=== PATIENT | female | born 1955 | race Caucasian/White ===

== ENCOUNTER → 2023-10-26 12:27 | Outpatient (REF) | payer OTHER, SELFPAY | LOC: HWRAD 12:27 | PROVIDERS: ATTENDING PHYSICIAN Student in an Organized Health Care Education/Training Program | DX: M25.649 Stiffness of unspecified hand, not elsewhere classified (principal); M79.641 Pain in right hand; M79.642 Pain in left hand | CPT/HCPCS: 73130 ==

== ENCOUNTER → 2023-10-28 08:13 | Outpatient (REF) | payer OTHER, SELFPAY | LOC: HWRAD 08:13 | PROVIDERS: ATTENDING PHYSICIAN Student in an Organized Health Care Education/Training Program | DX: Z85.3 Personal history of malignant neoplasm of breast (principal); N95.1 Menopausal and female climacteric states | CPT/HCPCS: 77080 ==

== ENCOUNTER → 2023-10-30 09:19 | Outpatient (REF) | payer SELFPAY | LOC: HWRAD 09:19 | PROVIDERS: ATTENDING PHYSICIAN Student in an Organized Health Care Education/Training Program | DX: E78.00 Pure hypercholesterolemia, unspecified (principal) | CPT/HCPCS: 75571 ==

== ENCOUNTER 2024-07-14 06:17 | Day surgery (SDC) | payer OTHER, SELFPAY ==
[2024-07-06 13:53] VITALS: BMI 29.2
[2024-07-06 14:31] LABS: Hematocrit 41.6 % (37.0-47.0); Hemoglobin 13.7 g/dL (12.0-16.0); Mean Corp Hgb Conc. 32.9 g/dL (33.0-37.0); Mean Corpuscular Hgb 28.1 pg (27.0-31.0); Mean Corpuscular Volume 85.2 fL (81.0-99.0); Mean Platelet Volume 9.9 fL (7.4-10.4); Platelet Count 335 10^3/uL (130-400); Red Blood Cell Count 4.88 10^6/uL (4.20-5.40); Red Cell Dist. Width 13.7 % (11.5-14.5); White Blood Cell Count 7.4 10^3/uL (4.8-10.8)
[2024-07-14] VITALS (16 sets, daily range): BP systolic 93–131; BP diastolic 66–82; BMI 29.2
[2024-07-14] MEDS: TYLENOL 1000 MG PO (08:29)
[2024-07-14] MEDS: NORMOSOL-R/PLASMALYTE-A 1000 IV (08:29)
[2024-07-14] MEDS: MOBIC 15 MG PO (08:29)
--- NOTE | 2024-07-14 13:23 | SUR.PHASEI ---
patient with continuous cough -now, productive for blood tinged sputum. chest with bilateral rales - upper chest. no history of CHF, no cardiac history. Dr Jones called and updated. Dr Jones visits at beside, saw blood tinged sputum. Feels
this will pass without treatment.
== END 2024-07-14 14:30 | disposition home or self-care (01) ==
LOC: SDS 06:17
PROVIDERS: ATTENDING PHYSICIAN Orthopaedic Surgery; FAMILY PHYSICIAN Student in an Organized Health Care Education/Training Program
DX: M75.111 Incomplete rotator cuff tear or rupture of right shoulder, not specified as traumatic (principal)
CPT/HCPCS: 29827; 29826; 29828; 36415; 85027; 93005; C1713